=== PATIENT | female | born 1990 | race Caucasian/White ===

== ENCOUNTER 2017-04-02 14:49 | Inpatient (IN) | payer BC ==
[~2017-04-02] VITALS: Ht 167.6 cm; Wt 75.0 kg
[2017-04-02] VITALS (18 sets, daily range): BP systolic 96–119; BP diastolic 50–80; PULSE 48–123; TEMP 98.3–98.6
[~2017-04-02 14:49] MED LIST: FERROUS SU325 MG/TAB PO; MOTRIN 600600 MG/TAB PO; PRENATAL1 TA7 PO
[2017-04-02 15:57] LABS: BASO % 0.3 % (0.0-2.0); EOS % 0.1 % (0-4.0); GRAN # 10.4 (1.4-6.5); GRAN % 78.4 % (42.2-75.2); MEAN CELL VOLUME 99 fl (80.0-100.0); MEAN CORPUSCULAR HGB CONC 34 g/dl (33.0-37.0); MEAN PLATELET VOLUME 10.5 fl (7.4-10.4); MONO # 0.7 (0.1-0.6); MONO % 5.4 % (1.7-9.3); PLATELET COUNT 204 K/mm3 (130-400); RED BLOOD COUNT 3.51 M/mm3 (4.10-5.30); REDCELL DISTRIBUTION WIDTH-CV 12.5 % (11.5-14.5); WHITE BLOOD COUNT 13.2 K/mm3 (4.8-10.8)
[2017-04-02 16:00] LABS: HEMATOCRIT 34.6 % (37.0-47.0); HEMOGLOBIN 11.9 g/dl (12.5-16.0); MEAN CORPUSCULAR HEMOGLOBIN 34 pg (27.0-31.0)
[2017-04-03 01:07] VITALS: BP 104/48; PULSE 48; TEMP 97.4
[2017-04-03 05:40] VITALS: BP 111/60; PULSE 69; TEMP 97.8
[2017-04-03 09:00] VITALS: BP 110/67; PULSE 54; TEMP 98.1
[2017-04-03] MEDS ORDERED: IBU800 M1 PO (11:01)
[2017-04-03 11:25] VITALS: BP 100/54; PULSE 66; TEMP 97.8
[2017-04-03 16:11] VITALS: BP 120/59; PULSE 57; TEMP 98.1
== END 2017-04-03 19:58 | disposition home or self-care (01) | DRG 775 ==
LOC: LDRO 14:49 → LDR 15:15 → OB 15:15 → LDRO 05-04 13:03
PROVIDERS: Obstetrics & Gynecology
PROC: 10E0XZZ Delivery of Products of Conception, External Approach (ICD-10-PCS; principal; 2017-04-02)
PROC: 0KQM0ZZ Repair Perineum Muscle, Open Approach (ICD-10-PCS; 2017-04-02)
DX: O48.0 Post-term pregnancy (principal); O99.02 Anemia complicating childbirth; D64.9 Anemia, unspecified; O70.1 Second degree perineal laceration during delivery; Z3A.40 40 weeks gestation of pregnancy; Z37.0 Single live birth
CPT/HCPCS: J2590; J7120

== ENCOUNTER → 2019-09-12 | Outpatient (CLI) | payer BC ==
[~2019-09-12] MED LIST changes: +IBU800 M1 PO
== END ==
LOC: MC.RAD 14:02
DX: N63.22 Unspecified lump in the left breast, upper inner quadrant (principal)